=== PATIENT | female | born 1995 | race African-American/Black ===

== ENCOUNTER 2019-11-08 12:50 | Emergency (ER) | payer MEDICAID ==
[~2019-11-08] VITALS: Ht 157.5 cm; Wt 64.0 kg
[2019-11-08 13:43] LABS: CLARITY URINE CLEAR (CLEAR); COLOR URINE YELLOW (YELLOW); KETONES URINE NEGATIVE (NEGATIVE); LEUKOCYTE ESTERASE URINE NEGATIVE (NEGATIVE); NITRITE URINE NEGATIVE (NEGATIVE); OCCULT BLOOD URINE 3+ (NEGATIVE); PH URINE 6.5 (4.5-8.0); PROTEIN URINE NEGATIVE (NEGATIVE); SPECIFIC GRAVITY URINE 1.007 (1.005-1.030); UROBILINOGEN URINE 0.2 E.U./dL (0.2-1.0)
[2019-11-08] MEDS ORDERED: ONDANSETRON HCL 4MG/2ML INJ IV STA ×2 (13:52→14:21)
[2019-11-08] MEDS ORDERED: SODIUM CHLORIDE 0.9% 1,000 ML IV ONE (13:52)
[2019-11-08] MEDS ORDERED: KETOROLAC 30MG/ML VIAL IV STA (13:52)
[2019-11-08] MEDS ORDERED: ACETAMINOPHEN 325MG TABLET PO STA (14:21)
[2019-11-08] MEDS ORDERED: ALBUTEROL (0.083%) 2.5MG/3ML NEB HHN STA (14:22)
[2019-11-08 14:26] LABS: BASOPHILS % 0.3 % (0.0-2.0); HEMATOCRIT. 39.4 % (36.0-48.0); HEMOGLOBIN. 12.8 g/dL (12.0-16.0); LYMPHOCYTES % 18.9 % (20.0-50.0); MEAN CORPUSCULAR HEMOGLOBIN 26.3 pg (28.0-32.0); MEAN CORPUSCULAR VOLUME 80.9 fL (81.0-99.0); MEAN PLATELET VOLUME 8.8 fl (7.4-10.4); MONOCYTES % 13.3 % (2.0-8.0); NEUTROPHILS % 67.5 % (40.0-76.0); PLATELET 251 x1000/uL (130-400); RED BLOOD CELL COUNT 4.87 mill/uL (4.2-5.4); RED CELL DISTRIBUTION WIDTH 17.8 % (11.6-14.6)
[2019-11-08] MEDS ORDERED: KETOROLAC 30MG/ML VIAL IV ONE (14:30)
[2019-11-08] MEDS ORDERED: SODIUM CHLORIDE 0.9% 1000ML BAG (SEPSIS BOLUS) IV ONE (14:30)
[2019-11-08 14:34] LABS: CHLORIDE 104 mEq/L (98-107)
[2019-11-08 14:39] LABS: INR 1.1; PROTHROMBIN TIME 11.1 sec (9.6-11.0)
[2019-11-08 15:58] LABS: HCG SCREEN NEGATIVE
[2019-11-08 17:35] VITALS: BP 122/71
== END 2019-11-08 17:35 | disposition left against medical advice (07) ==
LOC: ER 13:16
DX: B34.9 Viral infection, unspecified (principal); R31.29 Other microscopic hematuria; R55 Syncope and collapse; R05 Cough; R06.02 Shortness of breath; F17.290 Nicotine dependence, other tobacco product, uncomplicated; F41.9 Anxiety disorder, unspecified
CPT/HCPCS: 36415; 71045; 80053; 81003; 81025; 83605; 83690; 84703; 85025; 85610; 87040; 87086; 87804; 94640; 96361; 96374; 96375; 99284; J1885; J2405; J7030; J7611; Z7610